=== PATIENT | female | born 1960 | race Two or more races ===

== ENCOUNTER → 2020-08-15 | Outpatient (CLI) | payer SELFPAY | LOC: M LABSMTC 10:33 | PROVIDERS: ATTEND Pediatrics | DX: Z11.52 Encounter for screening for COVID-19 (principal) ==

== ENCOUNTER 2020-08-18 15:44 | Emergency (ER) | payer MEDICARE, SELFPAY ==
[~2020-08-18] VITALS: Ht 167.6 cm; Wt 118.2 kg
[2020-08-18] MEDS ORDERED: CYMB60CA3 PO (16:08)
[2020-08-18] MEDS ORDERED: ISON300T18 PO (16:08)
[2020-08-18] MEDS ORDERED: SYNT125T PO (16:08)
[2020-08-18] MEDS ORDERED: XARE10TA PO (16:08)
[2020-08-18] MEDS ORDERED: ZETI10TA16 PO (16:08)
[2020-08-18] MEDS ORDERED: FOLI1TAB11 PO (16:08)
[2020-08-18] MEDS ORDERED: METH25IN12 SC (16:08)
[2020-08-18] MEDS ORDERED: LYRI150C PO (16:08)
[2020-08-18] MEDS ORDERED: NORV2TAB PO (16:08)
[2020-08-18] MEDS ORDERED: PYRI50TA41 PO (16:08)
[2020-08-18] MEDS ORDERED: TOPR50TA PO (16:08)
[2020-08-18] MEDS ORDERED: NS 1,000 ML IV SCH (17:02)
[2020-08-18] MEDS ORDERED: EPINEPHrine INJ 1 MG/ML 1ML AMP IM PRN (17:05)
[2020-08-18] MEDS ORDERED: methylPREDNISolone 125MG 2ML VIAL IV ONE (17:05)
[2020-08-18] MEDS ORDERED: BAMLANIVIMAB 700 MG, ETESEVIMAB 1,400 MG in NS 250 ML IV ONE (17:05)
[2020-08-18] MEDS ORDERED: ALBUTEROL SULFATE 2.5 MG/0.5 ML INH NEB SOLN INH PRN (17:05)
[2020-08-18] MEDS ORDERED: methylPREDNISolone 125MG 2ML VIAL IV PRN (17:05)
[2020-08-18] MEDS ORDERED: diphenhydrAMINE 50MG/ML VIAL (J1200) IV PRN (17:05)
[2020-08-18] MEDS ORDERED: diphenhydrAMINE 25MG CAP PO ONE (17:05)
[2020-08-18] MEDS ORDERED: ALBUTEROL 90 MCG/ACT 8GM HFA INHALER INH PRN (17:05)
[2020-08-18 18:01] VITALS: BP 137/100
--- NOTE | 2020-08-18 22:14 | IPN ---
PROGRESS NOTE DATE: 08/18/2020 SUBJECTIVE: This is a 59-year-old female with history of rheumatoid arthritis, on chronic Methotrexate, lupus, Sjgren's, antiphospholipid, compliant with her Xarelto, fibromyalgia, latent tuberculosis, hypertension, hypercholesterolemia, hypothyroidism, right carpal tunnel release, elbow surgery, C-1, C-2 decompressive surgery, cholecystectomy, tonsillectomy, decompression of the eighth cranial nerves bilaterally, osteochondroma resection, bilateral knee replacements, right shoulder replacement, total abdominal hysterectomy due to fibroid uterus who presents to the Emergency Room for monoclonal antibodies due to Coronavirus. The patient had been exposed to her , who was in the hospital yesterday receiving monoclonal antibody after testing positive when he was caring for his mother in hospice, along with a caregiver. The patient has experienced headache, diarrhea 2-3 times a day since Friday and with loss of taste, feeling very tired, short of breath after walking 20 feet but without cough or chills. The patient has had no weight loss, no chest pain, pressure or tightness, palpitations or lightheadedness at home. In the E.R. she was afebrile at 97.9, saturating 97% on room air with ambulation and at rest. No tachypnea and no tachycardia. Hospitalist was asked to see the patient for monoclonal antibodies. Risk of the monoclonal antibody includes fever, hypertension, rash, anaphylaxis, angioedema and respiratory distress. The patient was agreeable and signed informed consent. OBJECTIVE: PHYSICAL EXAMINATION: VITAL SIGNS: Temperature 97.9, pulse 86, respiratory rate 19, blood pressure 137/100, oxygen saturation 97% on room air. GENERAL APPEARANCE: The patient is awake, alert, oriented to person, place and time, answering questions appropriately without conversational dyspnea, cyanosis, icterus or jaundice. HEENT: Pupils are equally round and reactive to light and accommodation. The extraocular muscles are intact. Normocephalic and atraumatic. NECK: The patient has no carotid bruits. LUNGS: No stridor or use of respiratory accessory muscles. Lungs have no adventitious breath sounds. Air entry is equal. No kyphoscoliosis, no use rales, rhonchi or wheezes. HEART: S1, S2, sinus rhythm, no murmurs, rubs or gallops. ABDOMEN: Obese, soft, nontender, nondistended. Positive bowel sounds. No hepatosplenomegaly. No abdominal bruit. EXTREMITIES: No clubbing, cyanosis, or any pitting edema. ASSESSMENT: This is a 59-year-old female who tested positive for Coronavirus due to exposure to her , who tested positive after caring for his mother in Hospice. She is here for monoclonal antibodies infusion. IMPRESSION AND PLAN: 1. Coronavirus infection receiving monoclonal antibody per protocol. 2. The patient may resume all other home medications. 3. Follow up with her primary care physician after 5 days from today. DEVIN
== END 2020-08-18 19:47 | disposition home or self-care (01) ==
LOC: M ED 15:44
DX: U07.1 COVID-19 (principal); E78.5 Hyperlipidemia, unspecified; Z22.7 Latent tuberculosis; I10 Essential (primary) hypertension; Z79.01 Long term (current) use of anticoagulants; Z88.1 Allergy status to other antibiotic agents; Z88.2 Allergy status to sulfonamides; Z88.8 Allergy status to other drugs, medicaments and biological substances; Z88.6 Allergy status to analgesic agent

== ENCOUNTER 2020-08-18 19:58 | Outpatient (CLI) | payer MEDICARE ==
[~2020-08-18] VITALS: Ht 167.6 cm; Wt 117.4 kg
--- NOTE | 2020-08-18 18:28 | IPNPDOC ---
Date Seen The patient was seen on 08/18/20. 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 a/p: 59-year-old full code with history of rheumatoid arthritis on chronic methotrexate latent tuberculosis. Receiving treatment, fibromyalgia, antiphosp holipid syndrome compliant with her Zarrella to Sjogren's, hypothyroidism, osteoarthritis, hypertension, hypercholesterolemia, obesity, lupus presents to the emergency room after testing positive on Friday with 2-3 with a three-day complaint since Friday of a headache that is diffuse diarrhea 2-3 times a day loss of taste without weight loss, fever, chills, cough and complaining of shortness of breath after walking about 20 feet. Patient was exposed to her , who is caring for his mother in hospice. He had tested positive for coronary virus and was having fever, cough and chills at home. She decided to be tested and was found to be positive. She is here for monoclonal antibody infusion per protocol. Coronavirus. Positive -Monoclonal antibody infusion per protocol. May discharge home and follow up with her primary care within 5 days of hospital discharge ADRIEN CARMONA MD Aug 18, 2020 18:28
[2020-08-18 19:47] VITALS: BP 155/86
[~2020-08-18 19:58] MED LIST: ACETAMINOPHEN TAB 650MG DOSE (2X325MG) PO ONE; ALBUTEROL 90 MCG/ACT 8GM HFA INHALER INH PRN; ALBUTEROL SULFATE 2.5 MG/0.5 ML INH NEB SOLN INH PRN; BAMLANIVIMAB 700 MG, ETESEVIMAB 1,400 MG in NS 250 ML IV ONE; CYMB60CA3 PO; EPINEPHrine INJ 1 MG/ML 1ML AMP IM PRN; FOLI1TAB11 PO; ISON300T18 PO; LYRI150C PO; METH25IN12 SC; NORV2TAB PO; NS 1,000 ML IV SCH; PYRI50TA41 PO; SYNT125T PO; TOPR50TA PO; XARE10TA PO; ZETI10TA16 PO; diphenhydrAMINE 25MG CAP PO ONE; diphenhydrAMINE 50MG/ML VIAL (J1200) IV PRN; methylPREDNISolone 125MG 2ML VIAL IV ONE; methylPREDNISolone 125MG 2ML VIAL IV PRN
[2020-08-18 20:50] VITALS: BP 126/71
[2020-08-18 21:20] VITALS: BP 157/79
[2020-08-18 22:00] VITALS: BP 116/79
[2020-08-18 22:59] VITALS: BP 154/80
== END 2020-08-18 23:08 | disposition home or self-care (01) ==
LOC: M OPCLI4 19:58
PROVIDERS: ATTEND General Practice
DX: U07.1 COVID-19 (principal); Z88.8 Allergy status to other drugs, medicaments and biological substances
CPT/HCPCS: 96375; J2930; M0239

== ENCOUNTER → 2021-02-07 | Outpatient (REF) | payer MEDICARE ==
[~2021-02-07] MED LIST changes: -ACETAMINOPHEN TAB 650MG DOSE (2X325MG) PO ONE; -ALBUTEROL 90 MCG/ACT 8GM HFA INHALER INH PRN; -ALBUTEROL SULFATE 2.5 MG/0.5 ML INH NEB SOLN INH PRN; -BAMLANIVIMAB 700 MG, ETESEVIMAB 1,400 MG in NS 250 ML IV ONE; -EPINEPHrine INJ 1 MG/ML 1ML AMP IM PRN; -NS 1,000 ML IV SCH; -diphenhydrAMINE 25MG CAP PO ONE; -diphenhydrAMINE 50MG/ML VIAL (J1200) IV PRN; -methylPREDNISolone 125MG 2ML VIAL IV ONE; -methylPREDNISolone 125MG 2ML VIAL IV PRN
== END ==
LOC: M LAB REF 16:17
PROVIDERS: ATTEND Internal Medicine
DX: M32.8 Other forms of systemic lupus erythematosus (principal)

== ENCOUNTER → 2021-02-22 | Outpatient (REF) | payer MEDICARE ==
[2021-02-22 13:57] LABS: IMMUNOGLOBULIN G 746 MG/DL (681-1648); IMMUNOGLOBULIN M 21.9 MG/DL (40-230)
[2021-02-23 18:08] LABS: FREE KAPPA LIGHT CHAINS SERUM 16.2 mg/L (3.3-19.4); FREE LAMBDA LIGHT CHAINS SERUM 11.5 mg/L (5.7-26.3); KAPPA/LAMBDA RATIO SERUM 1.41 (0.26-1.65)
[2021-02-26 15:14] LABS: ALBUMIN 4.39 GM/DL (3.29-5.55); ALBUMIN % 62.7 % (55.8-66.1); ALPHA-1-GLOBULIN % 4.8 % (2.9-4.9); ALPHA-1-GLOBULINS 0.34 GM/DL (0.17-0.41); ALPHA-2-GLOBULINS 0.73 GM/DL (0.42-0.99); ALPHA-2-GLOBULINS % 10.4 % (7.1-11.8); BETA-1-GLOBULINS 0.41 GM/DL (0.28-0.60); BETA-1-GLOBULINS % 5.9 % (4.7-7.2); BETA-2-GLOBULINS 0.38 GM/DL (0.19-0.55); BETA-2-GLOBULINS % 5.4 % (3.2-6.5); GAMMA GLOBULIN % 10.8 % (11.1-18.8); GAMMA GLOBULINS 0.76 GM/DL (0.65-1.58)
== END ==
LOC: M LAB REF 12:23
PROVIDERS: ATTEND Internal Medicine
DX: G62.9 Polyneuropathy, unspecified (principal)

== ENCOUNTER → 2021-03-09 | Outpatient (CLI) | payer MEDICARE ==
[~2021-03-09] MED LIST changes: -CYMB60CA3 PO; +CYMB60CA4 PO
--- NOTE | 2021-03-09 14:47 | REP ---
INDICATION: Assess stenosis TECHNIQUE: Carotid ultrasonography was performed bilaterally FINDINGS: Right: CCA systolic: 136.8 centimeters/second CCA diastolic: 13.0 centimeters/second ICA systolic: 70.7 centimeters/second ICA diastolic: 21.2 centimeters/second ICA CCA ratio: 0.52 Left: CCA systolic: 85.7 centimeters/second CCA diastolic: 18.6 centimeters/second ICA systolic: 54.2 centimeters/second ICA diastolic: 24.0 centimeters/second ICA CCA ratio: 0.63 Vertebral artery: Right: Antegrade flow left: Antegrade flow Patchy and linear echogenic material is seen along the carotid arterial diamond. Some of this casts and acoustic shadow consistent with calcific deposition. IMPRESSION: According to the SRU criteria there is less than 50% stenosis of the internal carotid artery bilaterally. This is secondary to both calcified and noncalcified atheromatous plaque formation. <Electronically signed by Isaac Oswald > 03/09/21 [id number]
== END ==
LOC: M RAD 13:58
PROVIDERS: ATTEND Internal Medicine
DX: I65.29 Occlusion and stenosis of unspecified carotid artery (principal)

== ENCOUNTER → 2021-03-15 | Outpatient (CLI) | payer MEDICARE ==
--- NOTE | 2021-03-15 16:17 | REPVR ---
PROCEDURE INFORMATION: Exam: CT Head Without Contrast Exam date and time: 03/15/2021 3:54 PM Age: 60 years old Clinical indication: Pain; Headache; Migraine; Additional info: Chronic migraine dizziness and giddiness TECHNIQUE: Imaging protocol: Computed tomography of the head without contrast. Radiation optimization: All CT scans at this facility use at least one of these dose optimization techniques: automated exposure control; mA and/or kV adjustment per patient size (includes targeted exams where dose is matched to clinical indication); or iterative reconstruction. COMPARISON: US Duplex,carotid (complete) 03/09/2021 2:13 PM FINDINGS: Brain: There is mild vermian and lateral cerebellar atrophy bilaterally. Depending on available history and prior imaging, MRI may be helpful. Cerebral ventricles: No ventriculomegaly. Paranasal sinuses: Visualized sinuses are unremarkable. No fluid levels. Mastoid air cells: Visualized mastoid air cells are well aerated. Bones/joints: There appear to be bilateral omar holes in the lateral aspects of the posterior fossa on axial image 9. Soft tissues: Unremarkable. Other findings: There is a normal "empty" pituitary sella. IMPRESSION: 1. There appear to be bilateral omar holes in the lateral aspects of the posterior fossa on axial image 9. 2. There is mild vermian and lateral cerebellar atrophy bilaterally. Depending on available history and prior imaging, MRI may be helpful. 3. No acute intracranial process is identified. Electronically signed by: Bon Medellin On 03/15/2021 16:17:17 PM
== END ==
LOC: M RAD 15:28
PROVIDERS: ATTEND Psychiatry & Neurology Neurology
DX: G43.719 Chronic migraine without aura, intractable, without status migrainosus (principal); R42 Dizziness and giddiness; G93.89 Other specified disorders of brain

== ENCOUNTER → 2021-05-14 | Outpatient (CLI) | payer MEDICARE | LOC: M WHC 10:16 | PROVIDERS: ATTEND Internal Medicine | DX: Z12.31 Encounter for screening mammogram for malignant neoplasm of breast (principal) ==

== ENCOUNTER → 2021-07-19 | Outpatient (REF) | payer MEDICARE | LOC: M SFHCRHEU 15:00 | PROVIDERS: ATTEND Internal Medicine | DX: M79.10 Myalgia, unspecified site (principal); M35.00 Sjogren syndrome, unspecified; I82.409 Acute embolism and thrombosis of unspecified deep veins of unspecified lower extremity; Z11.59 Encounter for screening for other viral diseases ==

== ENCOUNTER → 2021-07-25 | Outpatient (CLI) | payer MEDICARE | LOC: M WHC 09:13 | PROVIDERS: ATTEND Nurse Practitioner Adult Health | DX: N83.8 Other noninflammatory disorders of ovary, fallopian tube and broad ligament (principal); R10.31 Right lower quadrant pain; N63.11 Unspecified lump in the right breast, upper outer quadrant; N60.09 Solitary cyst of unspecified breast; Z90.710 Acquired absence of both cervix and uterus ==

== ENCOUNTER → 2021-07-25 | Outpatient (CLI) | payer MEDICARE ==
[2021-07-25 10:58] LABS: BASO # 0.1 10^3/uL (0.0-0.2); EOS # 1.3 10^3/uL (0.0-0.5); HEMATOCRIT 44.1 % (36.0-47.0); HEMOGLOBIN 14.3 g/dl (12.0-15.5); LYMPH # 2.6 10^3/uL (1.5-5.0); LYMPH % 43.4 % (24.0-44.0); MEAN CORPUSCULAR HEMOGLOBIN 29.5 pg (27.0-33.0); MEAN CORPUSCULAR HGB CONC 32.4 g/dl (32.0-36.5); MEAN CORPUSCULAR VOLUME 90.9 fl (80.0-96.0); MONO # 0.4 10^3/uL (0.0-0.8); MONO % 6.5 % (2.0-8.0); NEUTROPHILS # 1.7 10^3/uL (1.5-8.5); PLATELET COUNT, AUTOMATED 215 10^3/uL (150-450); RED BLOOD COUNT 4.85 10^6/uL (4.00-5.40)
[2021-07-25 11:22] LABS: EOS % 21.1 % (0.0-3.0)
[2021-07-25 11:23] LABS: DRVV SCREEN 61.8 SEC; ERYTHROCYTE SEDIMENTATION RATE 6 mm/hr (0-30)
[2021-07-25 12:15] LABS: PTT LUPUS TYPE ANTICOAG SCREEN 1.6 (0-1.2)
[2021-07-25 12:16] LABS: ALT/SGPT 41 U/L (12-78); BILIRUBIN,DIRECT 0.3 MG/DL (0.0-0.2); BILIRUBIN,TOTAL 1.1 MG/DL (0.2-1.0); BLOOD UREA NITROGEN 20 MG/DL (7-18); CARBON DIOXIDE LEVEL 31 MEQ/L (21-32); CHLORIDE LEVEL 106 MEQ/L (98-107); COMPLEMENT C3 146 MG/DL (90-180); COMPLEMENT C4 29 MG/DL (10-40); CREATININE FOR GFR 0.57 MG/DL (0.55-1.30); GLOMERULAR FILTRATION RATE > 60.0 (>51); GLUCOSE, FASTING 106 MG/DL (70-100); HEPATITIS B SURFACE ANTIBODY NEGATIVE (POSITIVE); HEPATITIS B SURFACE ANTIGEN NEGATIVE (NEGATIVE); IMMUNOGLOBULIN G 855 MG/DL (681-1648); IMMUNOGLOBULIN M 21.3 MG/DL (40-230); IRON (FE) 146 UG/DL (50-170); MAGNESIUM LEVEL 2.3 MG/DL (1.8-2.4); PHOSPHORUS LEVEL 4.3 MG/DL (2.5-4.9); POTASSIUM SERUM 4.4 MEQ/L (3.5-5.1); RHEUMATOID FACTOR QUANT 17.6 IU/ML (<15.0); SODIUM LEVEL 139 MEQ/L (136-145); TOTAL 25(OH) VITAMIN D 24.4 NG/ML (30.0-100.0); VITAMIN B12 LEVEL 585 PG/ML (247-911)
[2021-07-25 12:18] LABS: HEPATITIS C VIRUS ABY INDEX 0.2 INDEX (<0.8)
[2021-07-25 12:21] LABS: LUPUS CONFIRM RATIO 1.4
[2021-07-25 12:26] LABS: NORMALIZED RATIO 1.14 (0.00-1.20)
[2021-07-27 03:07] LABS: ANA (HEP2) Negative (.); BETA-2 GLYCOPROTEIN I ABY IGA <9 (0-25); BETA-2 GLYCOPROTEIN I ABY IGG <9 (0-20); BETA-2 GLYCOPROTEIN I ABY IGM <9 (0-32); CARDIOLIPIN IGA ANTIBODY <9 APL U/mL (0-11); CARDIOLIPIN IGG ANTIBODY <9 GPL U/mL (0-14); CARDIOLIPIN IGM ANTIBODY <9 MPL U/mL (0-12); COMPLEMENT TOTAL (CH50) 47 U/mL (>41); HEPATITIS B CORE ANTIBODY IGG Negative (Negative); SSA SJOGRENS A <0.2 AI (0.0-0.9); SSB SJOGRENS B <0.2 AI (0.0-0.9)
[2021-07-27 12:46] LABS: ALBUMIN % 63.1 % (55.8-66.1); ALPHA-1-GLOBULIN % 4.3 % (2.9-4.9); ALPHA-2-GLOBULINS % 9.5 % (7.1-11.8)
[2021-07-27 12:47] LABS: ALBUMIN 4.42 GM/DL (3.29-5.55); ALPHA-2-GLOBULINS 0.67 GM/DL (0.42-0.99); BETA-1-GLOBULINS 0.42 GM/DL (0.28-0.60); BETA-2-GLOBULINS 0.35 GM/DL (0.19-0.55); GAMMA GLOBULIN % 12.1 % (11.1-18.8); GAMMA GLOBULINS 0.85 GM/DL (0.65-1.58)
== END ==
LOC: M RAD 09:18
PROVIDERS: ATTEND Internal Medicine
DX: M79.10 Myalgia, unspecified site (principal); M35.00 Sjogren syndrome, unspecified; Z11.59 Encounter for screening for other viral diseases; I82.409 Acute embolism and thrombosis of unspecified deep veins of unspecified lower extremity; M19.049 Primary osteoarthritis, unspecified hand; Z79.899 Other long term (current) drug therapy

== ENCOUNTER → 2021-08-27 | Outpatient (CLI) | payer MEDICARE ==
[2021-08-27 16:29] LABS: CA 125 6.2 U/ML (<30.2); CA19-9 TUMOR MARKER,CARBOHYDRA 5.9 U/ML (<35.0)
== END ==
LOC: M LAB 15:01
PROVIDERS: ATTEND Obstetrics & Gynecology
DX: D39.12 Neoplasm of uncertain behavior of left ovary (principal); Z79.899 Other long term (current) drug therapy

== ENCOUNTER → 2021-09-13 | Outpatient (CLI) | payer MEDICARE | LOC: M PAIN 13:00 | PROVIDERS: ATTEND Anesthesiology | DX: M54.2 Cervicalgia (principal); G43.909 Migraine, unspecified, not intractable, without status migrainosus; M79.10 Myalgia, unspecified site; M79.18 Myalgia, other site; D68.9 Coagulation defect, unspecified; M79.7 Fibromyalgia; E03.9 Hypothyroidism, unspecified; I34.8 Other nonrheumatic mitral valve disorders; I73.00 Raynaud's syndrome without gangrene; M35.00 Sjogren syndrome, unspecified; E78.5 Hyperlipidemia, unspecified; I10 Essential (primary) hypertension; M32.9 Systemic lupus erythematosus, unspecified; E55.9 Vitamin D deficiency, unspecified; Z88.5 Allergy status to narcotic agent; Z88.8 Allergy status to other drugs, medicaments and biological substances; Z88.2 Allergy status to sulfonamides; Z79.01 Long term (current) use of anticoagulants; Z79.899 Other long term (current) drug therapy ==

== ENCOUNTER → 2021-09-14 | Outpatient (REF) | payer MEDICARE ==
[2021-09-14 16:10] LABS: BASO # 0.1 10^3/uL (0.0-0.2); BASO % 0.9 % (0.0-1.0); EOS # 0.6 10^3/uL (0.0-0.5); EOS % 10.1 % (0.0-3.0); HEMATOCRIT 41.1 % (36.0-47.0); HEMOGLOBIN 13.5 g/dl (12.0-15.5); LYMPH # 2.2 10^3/uL (1.5-5.0); LYMPH % 37.3 % (24.0-44.0); MEAN CORPUSCULAR HEMOGLOBIN 31.1 pg (27.0-33.0); MEAN CORPUSCULAR HGB CONC 32.8 g/dl (32.0-36.5); MEAN CORPUSCULAR VOLUME 94.7 fl (80.0-96.0); MONO # 0.5 10^3/uL (0.0-0.8); MONO % 9.3 % (2.0-8.0); NEUTROPHILS # 2.5 10^3/uL (1.5-8.5); NEUTROPHILS % 42.1 % (36.0-66.0); PLATELET COUNT, AUTOMATED 241 10^3/uL (150-450); RED BLOOD COUNT 4.34 10^6/uL (4.00-5.40); WHITE BLOOD COUNT 5.8 10^3/uL (4.0-10.0)
[2021-09-14 16:36] LABS: ALBUMIN 3.8 GM/DL (3.2-5.2); ALT/SGPT 40 U/L (12-78); BILIRUBIN,DIRECT 0.2 MG/DL (0.0-0.2); BILIRUBIN,TOTAL 0.8 MG/DL (0.2-1.0); BLOOD UREA NITROGEN 17 MG/DL (7-18); CALCIUM LEVEL 8.8 MG/DL (8.5-10.1); CARBON DIOXIDE LEVEL 30 MEQ/L (21-32); CHLORIDE LEVEL 107 MEQ/L (98-107); CREATININE FOR GFR 0.71 MG/DL (0.55-1.30); GLOMERULAR FILTRATION RATE > 60.0 (>51); GLUCOSE, FASTING 118 MG/DL (70-100); POTASSIUM SERUM 4.2 MEQ/L (3.5-5.1); SODIUM LEVEL 141 MEQ/L (136-145); TOTAL PROTEIN 6.2 GM/DL (6.4-8.2)
== END ==
LOC: M SFHCCLAY 10:12
PROVIDERS: ATTEND Internal Medicine
DX: M35.00 Sjogren syndrome, unspecified (principal)

== ENCOUNTER → 2021-09-24 | Outpatient (REF) | payer MEDICARE | LOC: M SFHCCLAY 08:51 | PROVIDERS: ATTEND Internal Medicine | DX: M35.00 Sjogren syndrome, unspecified (principal) ==

== ENCOUNTER → 2021-09-28 | Outpatient (REF) | payer MEDICARE | LOC: M LAB REF 12:04 | PROVIDERS: ATTEND Internal Medicine | DX: Z01.810 Encounter for preprocedural cardiovascular examination (principal); Z11.52 Encounter for screening for COVID-19; D39.12 Neoplasm of uncertain behavior of left ovary ==

== ENCOUNTER → 2021-10-11 | Outpatient (REF) | payer MEDICARE ==
[2021-10-11 16:48] LABS: IMMUNOGLOBULIN A 97.6 MG/DL (70-400); IMMUNOGLOBULIN E 74.5 IU/ML (<100); IMMUNOGLOBULIN M 23.5 MG/DL (40-230)
== END ==
LOC: M LABDRAWC 15:41
PROVIDERS: ATTEND Allergy & Immunology Allergy
DX: D84.9 Immunodeficiency, unspecified (principal)

== ENCOUNTER → 2021-10-11 | Outpatient (REF) | payer MEDICARE ==
[2021-10-11 16:32] LABS: BASO # 0.1 10^3/uL (0.0-0.2); BASO % 1.5 % (0.0-1.0); EOS # 1.2 10^3/uL (0.0-0.5); EOS % 15.8 % (0.0-3.0); HEMATOCRIT 40.9 % (36.0-47.0); LYMPH % 39.6 % (24.0-44.0); MEAN CORPUSCULAR HEMOGLOBIN 31.2 pg (27.0-33.0); MEAN CORPUSCULAR HGB CONC 31.8 g/dl (32.0-36.5); MEAN CORPUSCULAR VOLUME 98.1 fl (80.0-96.0); MONO # 0.5 10^3/uL (0.0-0.8); MONO % 6.1 % (2.0-8.0); NEUTROPHILS # 2.8 10^3/uL (1.5-8.5); NEUTROPHILS % 36.7 % (36.0-66.0); PLATELET COUNT, AUTOMATED 293 10^3/uL (150-450); RED BLOOD COUNT 4.17 10^6/uL (4.00-5.40); WHITE BLOOD COUNT 7.6 10^3/uL (4.0-10.0)
[2021-10-11 16:43] LABS: ALT/SGPT 49 U/L (12-78); BILIRUBIN,DIRECT 0.2 MG/DL (0.0-0.2); BILIRUBIN,TOTAL 0.7 MG/DL (0.2-1.0); BLOOD UREA NITROGEN 7 MG/DL (7-18); CALCIUM LEVEL 8.7 MG/DL (8.8-10.2); CARBON DIOXIDE LEVEL 31 MEQ/L (21-32); CHLORIDE LEVEL 107 MEQ/L (98-107); CREATININE FOR GFR 0.87 MG/DL (0.55-1.30); GLOMERULAR FILTRATION RATE > 60.0 (>45); GLUCOSE, FASTING 113 MG/DL (70-100); POTASSIUM SERUM 4.2 MEQ/L (3.5-5.1); SODIUM LEVEL 140 MEQ/L (136-145); TOTAL PROTEIN 6.3 GM/DL (6.4-8.2)
[2021-10-11 18:11] LABS: ERYTHROCYTE SEDIMENTATION RATE 8 mm/hr (0-30)
== END ==
LOC: M SFHCCLAY 11:12
PROVIDERS: ATTEND Internal Medicine
DX: M35.00 Sjogren syndrome, unspecified (principal)

== ENCOUNTER → 2021-11-08 | Outpatient (REF) | payer MEDICARE ==
[2021-11-08 16:47] LABS: BASO # 0.1 10^3/uL (0.0-0.2); BASO % 1.5 % (0.0-1.0); EOS % 15.8 % (0.0-3.0); HEMOGLOBIN 13.5 g/dl (12.0-15.5); LYMPH # 2.2 10^3/uL (1.5-5.0); LYMPH % 35.5 % (24.0-44.0); MEAN CORPUSCULAR HEMOGLOBIN 31.5 pg (27.0-33.0); MEAN CORPUSCULAR HGB CONC 32.9 g/dl (32.0-36.5); MEAN CORPUSCULAR VOLUME 95.6 fl (80.0-96.0); MONO # 0.5 10^3/uL (0.0-0.8); MONO % 7.7 % (2.0-8.0); NEUTROPHILS # 2.4 10^3/uL (1.5-8.5); NEUTROPHILS % 39.3 % (36.0-66.0); PLATELET COUNT, AUTOMATED 292 10^3/uL (150-450); RED BLOOD COUNT 4.29 10^6/uL (4.00-5.40); WHITE BLOOD COUNT 6.1 10^3/uL (4.0-10.0)
[2021-11-08 16:53] LABS: ALBUMIN 3.8 GM/DL (3.2-5.2); ALT/SGPT 33 U/L (12-78); BILIRUBIN,DIRECT 0.2 MG/DL (0.0-0.2); BILIRUBIN,TOTAL 1.5 MG/DL (0.2-1.0); BLOOD UREA NITROGEN 11 MG/DL (7-18); CALCIUM LEVEL 8.2 MG/DL (8.8-10.2); CARBON DIOXIDE LEVEL 27 MEQ/L (21-32); CHLORIDE LEVEL 108 MEQ/L (98-107); CREATININE FOR GFR 0.68 MG/DL (0.55-1.30); GLOMERULAR FILTRATION RATE > 60.0 (>45); GLUCOSE, FASTING 109 MG/DL (70-100); POTASSIUM SERUM 4.3 MEQ/L (3.5-5.1); SODIUM LEVEL 142 MEQ/L (136-145); TOTAL PROTEIN 6.2 GM/DL (6.4-8.2)
[2021-11-08 17:10] LABS: ERYTHROCYTE SEDIMENTATION RATE 6 mm/hr (0-30)
== END ==
LOC: M SFHCCLAY 09:57
PROVIDERS: ATTEND Internal Medicine
DX: M35.00 Sjogren syndrome, unspecified (principal)

== ENCOUNTER → 2022-01-08 | Outpatient (REF) | payer MEDICARE ==
[2022-01-08 18:04] LABS: FOLLICLE STIMULATING HORMONE 82.8 mIU/mL; LUTEINIZING HORMONE 32.9 mIU/mL
== END ==
LOC: M LAB REF 16:24
PROVIDERS: ATTEND Internal Medicine
DX: N80.9 Endometriosis, unspecified (principal)

== ENCOUNTER → 2022-01-09 | Outpatient (REF) | payer MEDICARE ==
[2022-01-09 11:48] LABS: BASO # 0.1 10^3/uL (0.0-0.2); BASO % 1.6 % (0.0-1.0); EOS # 0.8 10^3/uL (0.0-0.5); EOS % 14.4 % (0.0-3.0); HEMATOCRIT 43.6 % (36.0-47.0); HEMOGLOBIN 15.1 g/dl (12.0-15.5); LYMPH # 2.4 10^3/uL (1.5-5.0); LYMPH % 41.2 % (24.0-44.0); MEAN CORPUSCULAR HEMOGLOBIN 33.3 pg (27.0-33.0); MEAN CORPUSCULAR HGB CONC 34.6 g/dl (32.0-36.5); MONO # 0.5 10^3/uL (0.0-0.8); NEUTROPHILS # 1.9 10^3/uL (1.5-8.5); NEUTROPHILS % 33.6 % (36.0-66.0); PLATELET COUNT, AUTOMATED 269 10^3/uL (150-450); RED BLOOD COUNT 4.54 10^6/uL (4.00-5.40); WHITE BLOOD COUNT 5.8 10^3/uL (4.0-10.0)
[2022-01-09 12:45] LABS: ERYTHROCYTE SEDIMENTATION RATE 6 mm/hr (0-30)
[2022-01-09 12:58] LABS: ALBUMIN 4.1 GM/DL (3.2-5.2); ALT/SGPT 36 U/L (12-78); BILIRUBIN,DIRECT 0.2 MG/DL (0.0-0.2); BILIRUBIN,TOTAL 0.6 MG/DL (0.2-1.0); BLOOD UREA NITROGEN 17 MG/DL (7-18); CALCIUM LEVEL 9.2 MG/DL (8.8-10.2); CARBON DIOXIDE LEVEL 28 MEQ/L (21-32); CHLORIDE LEVEL 106 MEQ/L (98-107); CREATININE FOR GFR 0.62 MG/DL (0.55-1.30); GLOMERULAR FILTRATION RATE > 60.0 (>45); GLUCOSE, FASTING 100 MG/DL (70-100); POTASSIUM SERUM 4.3 MEQ/L (3.5-5.1); SODIUM LEVEL 139 MEQ/L (136-145)
== END ==
LOC: M SFHCCLAY 09:21
PROVIDERS: ATTEND Internal Medicine
DX: M35.00 Sjogren syndrome, unspecified (principal)

== ENCOUNTER → 2022-01-13 | Outpatient (CLI) | payer MEDICARE | LOC: M LABSMTC 10:08 | PROVIDERS: ATTEND Anesthesiology | DX: Z01.812 Encounter for preprocedural laboratory examination (principal); Z20.822 Contact with and (suspected) exposure to COVID-19 ==

== ENCOUNTER → 2022-01-15 | Outpatient (CLI) | payer MEDICARE ==
[2022-01-15 08:55] VITALS: BP 123/73
== END ==
LOC: M SDC 07:02
PROVIDERS: ATTEND Anesthesiology
DX: M25.78 Osteophyte, vertebrae (principal); M54.2 Cervicalgia

== ENCOUNTER → 2022-02-20 | Outpatient (REF) | payer MEDICARE ==
[2022-02-20 18:34] LABS: BASO % 0.7 % (0.0-1.0); EOS # 0.4 10^3/uL (0.0-0.5); EOS % 6.7 % (0.0-3.0); HEMATOCRIT 41.1 % (36.0-47.0); HEMOGLOBIN 12.9 g/dl (12.0-15.5); LYMPH % 36.3 % (24.0-44.0); MEAN CORPUSCULAR HEMOGLOBIN 30.4 pg (27.0-33.0); MEAN CORPUSCULAR HGB CONC 31.4 g/dl (32.0-36.5); MEAN CORPUSCULAR VOLUME 96.9 fl (80.0-96.0); MONO # 0.4 10^3/uL (0.0-0.8); NEUTROPHILS # 2.7 10^3/uL (1.5-8.5); NEUTROPHILS % 47.9 % (36.0-66.0); PLATELET COUNT, AUTOMATED 229 10^3/uL (150-450); RED BLOOD COUNT 4.24 10^6/uL (4.00-5.40); WHITE BLOOD COUNT 5.5 10^3/uL (4.0-10.0)
[2022-02-20 19:10] LABS: ALBUMIN 3.9 GM/DL (3.2-5.2); ALT/SGPT 33 U/L (12-78); BILIRUBIN,DIRECT 0.2 MG/DL (0.0-0.2); BILIRUBIN,TOTAL 0.6 MG/DL (0.2-1.0); BLOOD UREA NITROGEN 11 MG/DL (7-18); CARBON DIOXIDE LEVEL 31 MEQ/L (21-32); CHLORIDE LEVEL 105 MEQ/L (98-107); CREATININE FOR GFR 0.67 MG/DL (0.55-1.30); GLOMERULAR FILTRATION RATE > 60.0 (>45); GLUCOSE, FASTING 80 MG/DL (70-100); POTASSIUM SERUM 4.2 MEQ/L (3.5-5.1); SODIUM LEVEL 140 MEQ/L (136-145); TOTAL PROTEIN 6.7 GM/DL (6.4-8.2)
[2022-02-20 19:49] LABS: TOTAL 25(OH) VITAMIN D 37.7 NG/ML (30.0-100.0)
[2022-02-20 20:20] LABS: ERYTHROCYTE SEDIMENTATION RATE 8 mm/hr (0-30)
== END ==
LOC: M SFHCCLAY 11:11
PROVIDERS: ATTEND Internal Medicine
DX: M35.00 Sjogren syndrome, unspecified (principal); E55.9 Vitamin D deficiency, unspecified; Z79.899 Other long term (current) drug therapy

== ENCOUNTER → 2022-03-08 | Outpatient (CLI) | payer MEDICARE | LOC: M PAIN 11:00 | PROVIDERS: ATTEND Anesthesiology | DX: M54.2 Cervicalgia (principal); M79.10 Myalgia, unspecified site; M79.18 Myalgia, other site; M79.7 Fibromyalgia; H91.90 Unspecified hearing loss, unspecified ear; E03.9 Hypothyroidism, unspecified; I08.0 Rheumatic disorders of both mitral and aortic valves; I73.00 Raynaud's syndrome without gangrene; G43.909 Migraine, unspecified, not intractable, without status migrainosus; M35.00 Sjogren syndrome, unspecified; E78.5 Hyperlipidemia, unspecified; I10 Essential (primary) hypertension; M32.9 Systemic lupus erythematosus, unspecified; M19.90 Unspecified osteoarthritis, unspecified site; E55.9 Vitamin D deficiency, unspecified; R73.03 Prediabetes; Z79.01 Long term (current) use of anticoagulants; Z79.899 Other long term (current) drug therapy; Z79.890 Hormone replacement therapy; Z88.2 Allergy status to sulfonamides; Z88.8 Allergy status to other drugs, medicaments and biological substances; Z88.5 Allergy status to narcotic agent; J30.89 Other allergic rhinitis; Z91.038 Other insect allergy status ==

== ENCOUNTER → 2022-03-13 | Outpatient (CLI) | payer MEDICARE | LOC: M WHC 09:19 | PROVIDERS: ATTEND Internal Medicine | DX: N63.11 Unspecified lump in the right breast, upper outer quadrant (principal) | CPT/HCPCS: 77066; G0279 ==

== ENCOUNTER → 2022-03-26 | Outpatient (CLI) | payer MEDICARE | LOC: M PAIN 15:45 → M TMPAIN 15:45 | PROVIDERS: ATTEND Anesthesiology | DX: M79.10 Myalgia, unspecified site (principal); M54.2 Cervicalgia; M47.812 Spondylosis without myelopathy or radiculopathy, cervical region; M79.7 Fibromyalgia; H91.90 Unspecified hearing loss, unspecified ear; E03.9 Hypothyroidism, unspecified; I08.0 Rheumatic disorders of both mitral and aortic valves; I73.00 Raynaud's syndrome without gangrene; G43.909 Migraine, unspecified, not intractable, without status migrainosus; M35.00 Sjogren syndrome, unspecified; D68.59 Other primary thrombophilia; E78.5 Hyperlipidemia, unspecified; I10 Essential (primary) hypertension; M32.9 Systemic lupus erythematosus, unspecified; D84.821 Immunodeficiency due to drugs; M19.90 Unspecified osteoarthritis, unspecified site; E55.9 Vitamin D deficiency, unspecified; R73.03 Prediabetes; Z96.611 Presence of right artificial shoulder joint; Z96.653 Presence of artificial knee joint, bilateral; Z79.01 Long term (current) use of anticoagulants; Z79.899 Other long term (current) drug therapy; Z79.890 Hormone replacement therapy; Z88.2 Allergy status to sulfonamides; Z88.5 Allergy status to narcotic agent; Z88.8 Allergy status to other drugs, medicaments and biological substances; J30.89 Other allergic rhinitis ==

== ENCOUNTER → 2022-03-28 | Outpatient (CLI) | payer MEDICARE | LOC: M LABSMTC 11:12 | PROVIDERS: ATTEND Anesthesiology | DX: Z01.812 Encounter for preprocedural laboratory examination (principal); Z11.52 Encounter for screening for COVID-19 ==

== ENCOUNTER → 2022-04-01 | Outpatient (CLI) | payer MEDICARE ==
[~2022-04-01] MED LIST changes: +BUPIVACAINE HCL 0.25% 10ML VIAL As Ordered ONE; +BUPIVACAINE HCL 0.25% 30ML VIAL As Ordered ONE; +NORCO, ANEXSIA 5/325MG TABLET (HYDROcodone/ACETAMINOPHEN) As Ordered ONE; +TRIAMCINOLONE ACETONIDE SUSP 40 MG/ML VIAL (J3301) As Ordered ONE; +diazePAM 5MG TABLET As Ordered ONE
== END ==
LOC: M PAIN 13:45
PROVIDERS: ATTEND Anesthesiology
DX: M79.12 Myalgia of auxiliary muscles, head and neck (principal); M79.7 Fibromyalgia; H91.90 Unspecified hearing loss, unspecified ear; E03.9 Hypothyroidism, unspecified; I34.0 Nonrheumatic mitral (valve) insufficiency; I73.00 Raynaud's syndrome without gangrene; G43.909 Migraine, unspecified, not intractable, without status migrainosus; M35.00 Sjogren syndrome, unspecified; E78.5 Hyperlipidemia, unspecified; I10 Essential (primary) hypertension; M32.9 Systemic lupus erythematosus, unspecified; M19.90 Unspecified osteoarthritis, unspecified site; E55.9 Vitamin D deficiency, unspecified; R73.03 Prediabetes; Z88.2 Allergy status to sulfonamides; Z88.5 Allergy status to narcotic agent; Z88.8 Allergy status to other drugs, medicaments and biological substances; J30.89 Other allergic rhinitis; Z79.01 Long term (current) use of anticoagulants; Z79.890 Hormone replacement therapy; Z79.899 Other long term (current) drug therapy
CPT/HCPCS: 20553; J3301

== ENCOUNTER → 2022-04-24 | Outpatient (CLI) | payer MEDICARE ==
[~2022-04-24] MED LIST changes: -BUPIVACAINE HCL 0.25% 10ML VIAL As Ordered ONE; -BUPIVACAINE HCL 0.25% 30ML VIAL As Ordered ONE; -NORCO, ANEXSIA 5/325MG TABLET (HYDROcodone/ACETAMINOPHEN) As Ordered ONE; -TRIAMCINOLONE ACETONIDE SUSP 40 MG/ML VIAL (J3301) As Ordered ONE; -diazePAM 5MG TABLET As Ordered ONE
== END ==
LOC: M PAIN 10:30
PROVIDERS: ATTEND Anesthesiology
DX: G89.29 Other chronic pain (principal); M54.2 Cervicalgia; M79.10 Myalgia, unspecified site; M79.18 Myalgia, other site; M79.7 Fibromyalgia; E03.9 Hypothyroidism, unspecified; I73.00 Raynaud's syndrome without gangrene; G43.909 Migraine, unspecified, not intractable, without status migrainosus; E78.5 Hyperlipidemia, unspecified; M35.00 Sjogren syndrome, unspecified; I10 Essential (primary) hypertension; M32.9 Systemic lupus erythematosus, unspecified; D68.59 Other primary thrombophilia; M19.90 Unspecified osteoarthritis, unspecified site; E55.9 Vitamin D deficiency, unspecified; Z79.01 Long term (current) use of anticoagulants; Z79.890 Hormone replacement therapy; Z79.899 Other long term (current) drug therapy; Z88.2 Allergy status to sulfonamides; Z88.5 Allergy status to narcotic agent; Z88.8 Allergy status to other drugs, medicaments and biological substances; J30.89 Other allergic rhinitis

== ENCOUNTER → 2022-04-30 | Outpatient (REF) | payer MEDICARE ==
[2022-04-30 17:18] LABS: BASO % 0.7 % (0.0-1.0); EOS # 0.5 10^3/uL (0.0-0.5); EOS % 8.1 % (0.0-3.0); HEMATOCRIT 40.7 % (36.0-47.0); HEMOGLOBIN 12.8 g/dl (12.0-15.5); LYMPH # 2.2 10^3/uL (1.5-5.0); MEAN CORPUSCULAR HEMOGLOBIN 30.7 pg (27.0-33.0); MEAN CORPUSCULAR HGB CONC 31.4 g/dl (32.0-36.5); MEAN CORPUSCULAR VOLUME 97.6 fl (80.0-96.0); MONO # 0.5 10^3/uL (0.0-0.8); MONO % 8.1 % (2.0-8.0); NEUTROPHILS # 2.6 10^3/uL (1.5-8.5); NEUTROPHILS % 44.9 % (36.0-66.0); PLATELET COUNT, AUTOMATED 221 10^3/uL (150-450); RED BLOOD COUNT 4.17 10^6/uL (4.00-5.40); WHITE BLOOD COUNT 5.8 10^3/uL (4.0-10.0)
[2022-04-30 17:44] LABS: ALBUMIN 3.7 G/DL (3.2-5.2); ALKALINE PHOSPHATASE 53 U/L (46-116); ALT/SGPT 35 U/L (7.0-40); AST/SGOT 24 U/L (<34); BILIRUBIN,DIRECT 0.2 MG/DL (<0.4); BILIRUBIN,TOTAL 0.7 MG/DL (0.3-1.2); BLOOD UREA NITROGEN 20 MG/DL (9-23); C REACTIVE PROTEIN QUANTITATIV < 0.40 MG/DL (<1.0); CALCIUM LEVEL 8.8 MG/DL (8.3-10.6); CARBON DIOXIDE LEVEL 32 MMOL/L (20-31); CHLORIDE LEVEL 102 MMOL/L (98-107); CREATININE FOR GFR 0.82 MG/DL (0.55-1.30); GLOMERULAR FILTRATION RATE > 60.0 (>45); GLUCOSE, FASTING 93 MG/DL (74-106); SODIUM LEVEL 140 MMOL/L (136-145); TOTAL PROTEIN 6.2 G/DL (5.7-8.2)
[2022-04-30 18:30] LABS: ERYTHROCYTE SEDIMENTATION RATE 6 mm/hr (0-30)
== END ==
LOC: M SFHCCLAY 14:58
PROVIDERS: ATTEND Internal Medicine
DX: M35.00 Sjogren syndrome, unspecified (principal)

== ENCOUNTER → 2022-07-01 | Outpatient (REF) | payer MEDICARE ==
[2022-07-01 17:43] LABS: C REACTIVE PROTEIN QUANTITATIV < 0.40 MG/DL (<1.0)
[2022-07-01 17:48] LABS: ALBUMIN 3.8 G/DL (3.2-5.2); ALKALINE PHOSPHATASE 69 U/L (46-116); ALT/SGPT 35 U/L (7.0-40); AST/SGOT 25 U/L (<34); BILIRUBIN,DIRECT 0.2 MG/DL (<0.4); BILIRUBIN,TOTAL 0.8 MG/DL (0.3-1.2); BLOOD UREA NITROGEN 16 MG/DL (9-23); CALCIUM LEVEL 8.6 MG/DL (8.3-10.6); CARBON DIOXIDE LEVEL 28 MMOL/L (20-31); CHLORIDE LEVEL 104 MMOL/L (98-107); CREATININE FOR GFR 0.61 MG/DL (0.55-1.30); GLOMERULAR FILTRATION RATE > 60.0 (>45); GLUCOSE, FASTING 87 MG/DL (74-106); POTASSIUM SERUM 3.9 MMOL/L (3.5-5.1); SODIUM LEVEL 140 MMOL/L (136-145); TOTAL PROTEIN 6.5 G/DL (5.7-8.2)
[2022-07-01 18:04] LABS: ERYTHROCYTE SEDIMENTATION RATE 17 mm/hr (0-30)
[2022-07-01 18:12] LABS: BASO # 0.1 10^3/uL (0.0-0.2); BASO % 1.2 % (0.0-1.0); EOS # 0.6 10^3/uL (0.0-0.5); EOS % 10.2 % (0.0-3.0); HEMOGLOBIN 13.3 g/dl (12.0-15.5); LYMPH # 1.8 10^3/uL (1.5-5.0); LYMPH % 31.3 % (24.0-44.0); MEAN CORPUSCULAR HEMOGLOBIN 31.3 pg (27.0-33.0); MEAN CORPUSCULAR HGB CONC 32.4 g/dl (32.0-36.5); MEAN CORPUSCULAR VOLUME 96.5 fl (80.0-96.0); MONO # 0.4 10^3/uL (0.0-0.8); NEUTROPHILS % 51.1 % (36.0-66.0); PLATELET COUNT, AUTOMATED 246 10^3/uL (150-450); RED BLOOD COUNT 4.25 10^6/uL (4.00-5.40); WHITE BLOOD COUNT 5.9 10^3/uL (4.0-10.0)
== END ==
LOC: M SFHCCLAY 14:05
PROVIDERS: ATTEND Internal Medicine
DX: M35.00 Sjogren syndrome, unspecified (principal)

== ENCOUNTER → 2022-07-04 | Outpatient (CLI) | payer MEDICARE | LOC: M PAIN 13:00 | PROVIDERS: ATTEND Anesthesiology | DX: M79.12 Myalgia of auxiliary muscles, head and neck (principal); M79.18 Myalgia, other site; M25.511 Pain in right shoulder; M79.7 Fibromyalgia; H91.90 Unspecified hearing loss, unspecified ear; E03.9 Hypothyroidism, unspecified; I73.00 Raynaud's syndrome without gangrene; G43.909 Migraine, unspecified, not intractable, without status migrainosus; M35.00 Sjogren syndrome, unspecified; E78.5 Hyperlipidemia, unspecified; I10 Essential (primary) hypertension; J30.81 Allergic rhinitis due to animal (cat) (dog) hair and dander; M32.9 Systemic lupus erythematosus, unspecified; E55.9 Vitamin D deficiency, unspecified; Z79.890 Hormone replacement therapy; Z79.01 Long term (current) use of anticoagulants; Z79.899 Other long term (current) drug therapy; Z88.2 Allergy status to sulfonamides; Z88.5 Allergy status to narcotic agent; Z88.8 Allergy status to other drugs, medicaments and biological substances; Z91.038 Other insect allergy status ==

== ENCOUNTER → 2022-08-12 | Outpatient (REF) | payer MEDICARE ==
[2022-08-12 17:42] LABS: C REACTIVE PROTEIN QUANTITATIV < 0.40 MG/DL (<1.0)
[2022-08-12 17:49] LABS: ALBUMIN 3.7 G/DL (3.2-5.2); ALKALINE PHOSPHATASE 60 U/L (46-116); ALT/SGPT 25 U/L (7.0-40); AST/SGOT 16 U/L (<34); BASO # 0.1 10^3/uL (0.0-0.2); BILIRUBIN,DIRECT 0.2 MG/DL (<0.4); BILIRUBIN,TOTAL 0.6 MG/DL (0.3-1.2); BLOOD UREA NITROGEN 19 MG/DL (9-23); CALCIUM LEVEL 8.6 MG/DL (8.3-10.6); CARBON DIOXIDE LEVEL 30 MMOL/L (20-31); CHLORIDE LEVEL 103 MMOL/L (98-107); CREATININE FOR GFR 0.67 MG/DL (0.55-1.30); EOS # 0.6 10^3/uL (0.0-0.5); EOS % 9.7 % (0.0-3.0); GLOMERULAR FILTRATION RATE > 60.0 (>45); GLUCOSE, FASTING 79 MG/DL (74-106); HEMATOCRIT 40.7 % (36.0-47.0); HEMOGLOBIN 13.2 g/dl (12.0-15.5); LYMPH # 2.3 10^3/uL (1.5-5.0); LYMPH % 36.5 % (24.0-44.0); MEAN CORPUSCULAR HEMOGLOBIN 31.1 pg (27.0-33.0); MEAN CORPUSCULAR HGB CONC 32.4 g/dl (32.0-36.5); MEAN CORPUSCULAR VOLUME 95.8 fl (80.0-96.0); MONO # 0.4 10^3/uL (0.0-0.8); NEUTROPHILS # 2.9 10^3/uL (1.5-8.5); NEUTROPHILS % 46.8 % (36.0-66.0); PLATELET COUNT, AUTOMATED 261 10^3/uL (150-450); RED BLOOD COUNT 4.25 10^6/uL (4.00-5.40); SODIUM LEVEL 140 MMOL/L (136-145); WHITE BLOOD COUNT 6.2 10^3/uL (4.0-10.0)
[2022-08-12 18:32] LABS: ERYTHROCYTE SEDIMENTATION RATE 6 mm/hr (0-30)
== END ==
LOC: M SFHCCLAY 14:08
PROVIDERS: ATTEND Internal Medicine
DX: M35.00 Sjogren syndrome, unspecified (principal)

== ENCOUNTER → 2022-08-16 | Outpatient (CLI) | payer MEDICARE | LOC: M PAIN 16:00 | PROVIDERS: ATTEND Anesthesiology | DX: M79.10 Myalgia, unspecified site (principal); M79.18 Myalgia, other site; M79.7 Fibromyalgia; E03.9 Hypothyroidism, unspecified; I73.00 Raynaud's syndrome without gangrene; G43.909 Migraine, unspecified, not intractable, without status migrainosus; M35.00 Sjogren syndrome, unspecified; E78.5 Hyperlipidemia, unspecified; I10 Essential (primary) hypertension; M32.9 Systemic lupus erythematosus, unspecified; E55.9 Vitamin D deficiency, unspecified; M19.90 Unspecified osteoarthritis, unspecified site; Z79.01 Long term (current) use of anticoagulants; Z79.890 Hormone replacement therapy; Z79.899 Other long term (current) drug therapy; Z88.2 Allergy status to sulfonamides; Z88.5 Allergy status to narcotic agent; Z88.8 Allergy status to other drugs, medicaments and biological substances; Z91.038 Other insect allergy status ==

== ENCOUNTER → 2022-08-28 | Outpatient (CLI) | payer MEDICARE | LOC: M PAIN 10:30 | PROVIDERS: ATTEND Anesthesiology | DX: M25.511 Pain in right shoulder (principal); M79.2 Neuralgia and neuritis, unspecified; M79.7 Fibromyalgia; E03.9 Hypothyroidism, unspecified; G43.909 Migraine, unspecified, not intractable, without status migrainosus; I10 Essential (primary) hypertension; Z96.653 Presence of artificial knee joint, bilateral; Z96.611 Presence of right artificial shoulder joint; Z88.1 Allergy status to other antibiotic agents; Z88.5 Allergy status to narcotic agent; Z88.8 Allergy status to other drugs, medicaments and biological substances; Z91.038 Other insect allergy status; Z79.01 Long term (current) use of anticoagulants; Z79.890 Hormone replacement therapy; Z79.899 Other long term (current) drug therapy ==

== ENCOUNTER → 2022-10-31 | Outpatient (REF) | payer MEDICARE ==
[2022-10-31 17:36] LABS: BASO # 0.1 10^3/uL (0.0-0.2); BASO % 0.8 % (0.0-1.0); EOS % 13.7 % (0.0-3.0); HEMATOCRIT 40.7 % (36.0-47.0); HEMOGLOBIN 13.4 g/dl (12.0-15.5); LYMPH % 42.9 % (24.0-44.0); MEAN CORPUSCULAR HEMOGLOBIN 29.7 pg (27.0-33.0); MEAN CORPUSCULAR HGB CONC 32.9 g/dl (32.0-36.5); MEAN CORPUSCULAR VOLUME 90.2 fl (80.0-96.0); MONO # 0.4 10^3/uL (0.0-0.8); MONO % 5.7 % (2.0-8.0); NEUTROPHILS # 2.6 10^3/uL (1.5-8.5); NEUTROPHILS % 36.6 % (36.0-66.0); PLATELET COUNT, AUTOMATED 258 10^3/uL (150-450); RED BLOOD COUNT 4.51 10^6/uL (4.00-5.40); WHITE BLOOD COUNT 7.1 10^3/uL (4.0-10.0)
[2022-10-31 17:37] LABS: C REACTIVE PROTEIN QUANTITATIV < 0.40 MG/DL (<1.0)
[2022-10-31 17:38] LABS: ALBUMIN 3.8 G/DL (3.2-5.2); ALKALINE PHOSPHATASE 63 U/L (46-116); ALT/SGPT 31 U/L (7.0-40); AST/SGOT 24 U/L (<34); BILIRUBIN,DIRECT 0.2 MG/DL (<0.4); BILIRUBIN,TOTAL 0.5 MG/DL (0.3-1.2); BLOOD UREA NITROGEN 12 MG/DL (9-23); CALCIUM LEVEL 8.4 MG/DL (8.3-10.6); CARBON DIOXIDE LEVEL 28 MMOL/L (20-31); CHLORIDE LEVEL 105 MMOL/L (98-107); CREATININE FOR GFR 0.69 MG/DL (0.55-1.30); GLOMERULAR FILTRATION RATE > 60.0 (>45); GLUCOSE, FASTING 89 MG/DL (74-106); POTASSIUM SERUM 4.3 MMOL/L (3.5-5.1); SODIUM LEVEL 140 MMOL/L (136-145); TOTAL PROTEIN 6.1 G/DL (5.7-8.2)
[2022-10-31 17:56] LABS: ERYTHROCYTE SEDIMENTATION RATE 7 mm/hr (0-30)
== END ==
LOC: M SFHCCLAY 13:13
PROVIDERS: ATTEND Internal Medicine
DX: M35.00 Sjogren syndrome, unspecified (principal)

== ENCOUNTER → 2022-11-11 | Outpatient (CLI) | payer OTHER, MEDICARE | LOC: M PAIN 10:45 | PROVIDERS: ATTEND Nurse Practitioner Family | DX: M79.18 Myalgia, other site (principal); M79.7 Fibromyalgia; E03.9 Hypothyroidism, unspecified; I73.00 Raynaud's syndrome without gangrene; G43.909 Migraine, unspecified, not intractable, without status migrainosus; M35.00 Sjogren syndrome, unspecified; E78.5 Hyperlipidemia, unspecified; I10 Essential (primary) hypertension; M32.9 Systemic lupus erythematosus, unspecified; E55.9 Vitamin D deficiency, unspecified; M19.90 Unspecified osteoarthritis, unspecified site; I34.0 Nonrheumatic mitral (valve) insufficiency; Z79.01 Long term (current) use of anticoagulants; Z79.890 Hormone replacement therapy; Z79.899 Other long term (current) drug therapy; Z88.2 Allergy status to sulfonamides; Z88.8 Allergy status to other drugs, medicaments and biological substances; J30.81 Allergic rhinitis due to animal (cat) (dog) hair and dander; Z91.038 Other insect allergy status ==

== ENCOUNTER → 2022-12-18 | Outpatient (REF) | payer MEDICARE, OTHER ==
[2022-12-18 11:40] LABS: HEMATOCRIT 43.2 % (36.0-47.0); HEMOGLOBIN 14.1 g/dl (12.0-15.5); MEAN CORPUSCULAR HEMOGLOBIN 30.5 pg (27.0-33.0); MEAN CORPUSCULAR HGB CONC 32.6 g/dl (32.0-36.5); MEAN CORPUSCULAR VOLUME 93.3 fl (80.0-96.0); PLATELET COUNT, AUTOMATED 225 10^3/uL (150-450); RED BLOOD COUNT 4.63 10^6/uL (4.00-5.40); WHITE BLOOD COUNT 5.4 10^3/uL (4.0-10.0)
[2022-12-18 11:57] LABS: ERYTHROCYTE SEDIMENTATION RATE 18 mm/hr (0-30)
[2022-12-18 12:10] LABS: C REACTIVE PROTEIN QUANTITATIV < 0.40 MG/DL (<1.0)
[2022-12-18 12:12] LABS: ALBUMIN 3.9 G/DL (3.2-5.2); ALKALINE PHOSPHATASE 74 U/L (46-116); ALT/SGPT 24 U/L (7.0-40); AST/SGOT 17 U/L (<34); BILIRUBIN,DIRECT 0.2 MG/DL (<0.4); BILIRUBIN,TOTAL 0.7 MG/DL (0.3-1.2); BLOOD UREA NITROGEN 9 MG/DL (9-23); CALCIUM LEVEL 8.9 MG/DL (8.3-10.6); CARBON DIOXIDE LEVEL 29 MMOL/L (20-31); CHLORIDE LEVEL 103 MMOL/L (98-107); CREATININE FOR GFR 0.59 MG/DL (0.55-1.30); GLOMERULAR FILTRATION RATE > 60.0 (>45); GLUCOSE, FASTING 88 MG/DL (74-106); POTASSIUM SERUM 4.1 MMOL/L (3.5-5.1); SODIUM LEVEL 140 MMOL/L (136-145); TOTAL PROTEIN 6.3 G/DL (5.7-8.2)
[2022-12-18 12:22] LABS: ATYPICAL LYMPH 14 % (0-5); EOSINOPHILS 8 % (0-3); LYMPHOCYTES 29 % (16-44); MONOCYTES 7 % (0-5); NEUTROPHILS 42 % (28-66); PLATELET ESTIMATE NORMAL (NORMAL)
== END ==
LOC: M SFHCCLAY 07:57
PROVIDERS: ATTEND Internal Medicine
DX: M35.00 Sjogren syndrome, unspecified (principal)

== ENCOUNTER → 2023-02-05 | Outpatient (CLI) | payer MEDICARE ==
[~2023-02-05] MED LIST changes: +EZET10TA58 PO; -ZETI10TA16 PO
== END ==
LOC: M INFU 09:33
PROVIDERS: ATTEND Internal Medicine
DX: M35.00 Sjogren syndrome, unspecified (principal); Z88.8 Allergy status to other drugs, medicaments and biological substances; Z88.5 Allergy status to narcotic agent; Z88.2 Allergy status to sulfonamides

== ENCOUNTER 2023-02-19 08:00 | Outpatient (CLI) | payer MEDICARE ==
[~2023-02-19] VITALS: Ht 167.6 cm; Wt 113.2 kg
[2023-02-19] VITALS (8 sets, daily range): BP systolic 111–172; BP diastolic 65–84; O2SAT 70–99
[~2023-02-19 08:00] MED LIST changes: +ALBUTEROL SULFATE 2.5MG/0.5ML INH NEB SOLN INH PRN; +EPINEPHrine INJ 1 MG/ML 1ML AMP IM PRN; +diphenhydrAMINE 50MG/ML VIAL IV PRN; +methylPREDNISolone 125MG 2ML VIAL IV PRN
[2023-02-19] MEDS ORDERED: diphenhydrAMINE 50MG PO PRIOR TO INFUSION PO ONE (08:35)
[2023-02-19] MEDS ORDERED: ACETAMINOPHEN 650MG PO PRIOR TO INFUSION PO ONE (08:35)
[2023-02-19] MEDS ORDERED: riTUXimab 1,000 MG in NS 900 ML IV ONE (08:45)
== END 2023-02-19 14:45 ==
LOC: M INFU 08:00
PROVIDERS: ATTEND Internal Medicine
DX: M35.00 Sjogren syndrome, unspecified (principal); Z88.1 Allergy status to other antibiotic agents; Z88.5 Allergy status to narcotic agent; Z88.2 Allergy status to sulfonamides
CPT/HCPCS: 96413; 96415; J9312

== ENCOUNTER → 2023-02-28 | Outpatient (CLI) | payer MEDICARE ==
[~2023-02-28] MED LIST changes: -ALBUTEROL SULFATE 2.5MG/0.5ML INH NEB SOLN INH PRN; -EPINEPHrine INJ 1 MG/ML 1ML AMP IM PRN; -diphenhydrAMINE 50MG/ML VIAL IV PRN; -methylPREDNISolone 125MG 2ML VIAL IV PRN
== END ==
LOC: M PLAIMG 11:04
PROVIDERS: ATTEND Psychiatry & Neurology Neurology
DX: G43.719 Chronic migraine without aura, intractable, without status migrainosus (principal); H81.4 Vertigo of central origin

== ENCOUNTER 2023-03-05 10:05 | Outpatient (CLI) | payer MEDICARE ==
[~2023-03-05] VITALS: Ht 167.6 cm; Wt 111.7 kg
[2023-03-05 10:00] VITALS: BP 149/69; TEMP 97.6; O2SAT 100
[~2023-03-05 10:05] MED LIST changes: +ALBUTEROL SULFATE 2.5MG/0.5ML INH NEB SOLN INH PRN; +EPINEPHrine INJ 1 MG/ML 1ML AMP IM PRN; +diphenhydrAMINE 50MG/ML VIAL IV PRN; +methylPREDNISolone 125MG 2ML VIAL IV PRN
[2023-03-05] MEDS ORDERED: diphenhydrAMINE 50MG PO PRIOR TO INFUSION PO ONE (10:20)
[2023-03-05] MEDS ORDERED: ACETAMINOPHEN 650MG ER TAB (TYLENOL ARTHRITIS) PO ONE (10:20)
[2023-03-05] MEDS ORDERED: riTUXimab 1,000 MG in NS 900 ML IV ONE (10:30)
[2023-03-05 12:15] VITALS: BP 160/79; O2SAT 100
[2023-03-05 12:45] VITALS: BP 137/72; TEMP 97.3; O2SAT 98
[2023-03-05 13:15] VITALS: BP 135/74; TEMP 97.6; O2SAT 99
[2023-03-05 14:30] VITALS: BP 131/70; TEMP 98; O2SAT 97
[2023-03-05 15:00] VITALS: BP 130/73; TEMP 98.2; O2SAT 98
== END 2023-03-05 16:25 ==
LOC: M INFU 10:05
PROVIDERS: ATTEND Internal Medicine
DX: M35.00 Sjogren syndrome, unspecified (principal); Z88.5 Allergy status to narcotic agent; Z88.2 Allergy status to sulfonamides; Z88.8 Allergy status to other drugs, medicaments and biological substances
CPT/HCPCS: 96365; 96366; J9312

== ENCOUNTER → 2023-03-11 | Outpatient (CLI) | payer MEDICARE ==
[~2023-03-11] MED LIST changes: -ALBUTEROL SULFATE 2.5MG/0.5ML INH NEB SOLN INH PRN; -EPINEPHrine INJ 1 MG/ML 1ML AMP IM PRN; -diphenhydrAMINE 50MG/ML VIAL IV PRN; -methylPREDNISolone 125MG 2ML VIAL IV PRN
== END ==
LOC: M CLY 10:14
PROVIDERS: ATTEND Internal Medicine
DX: R93.6 Abnormal findings on diagnostic imaging of limbs (principal)

== ENCOUNTER → 2023-03-11 | Outpatient (REF) | payer MEDICARE, OTHER ==
[2023-03-11 18:39] LABS: BASO # 0.1 10^3/uL (0.0-0.2); BASO % 0.8 % (0.0-1.0); EOS # 0.3 10^3/uL (0.0-0.5); EOS % 5.2 % (0.0-3.0); HEMATOCRIT 41.3 % (36.0-47.0); LYMPH # 1.5 10^3/uL (1.5-5.0); LYMPH % 24.4 % (24.0-44.0); MEAN CORPUSCULAR HEMOGLOBIN 33.3 pg (27.0-33.0); MEAN CORPUSCULAR HGB CONC 33.9 g/dl (32.0-36.5); MEAN CORPUSCULAR VOLUME 98.1 fl (80.0-96.0); MONO # 0.5 10^3/uL (0.0-0.8); MONO % 7.6 % (2.0-8.0); NEUTROPHILS # 3.7 10^3/uL (1.5-8.5); NEUTROPHILS % 61.7 % (36.0-66.0); PLATELET COUNT, AUTOMATED 320 10^3/uL (150-450); RED BLOOD COUNT 4.21 10^6/uL (4.00-5.40); WHITE BLOOD COUNT 5.9 10^3/uL (4.0-10.0)
[2023-03-11 18:51] LABS: ALBUMIN 4.1 G/DL (3.2-5.2); ALKALINE PHOSPHATASE 65 U/L (46-116); ALT/SGPT 46 U/L (7.0-40); AST/SGOT 26 U/L (<34); BILIRUBIN,DIRECT 0.2 MG/DL (<0.4); BILIRUBIN,TOTAL 0.7 MG/DL (0.3-1.2); BLOOD UREA NITROGEN 15 MG/DL (9-23); CALCIUM LEVEL 8.7 MG/DL (8.3-10.6); CARBON DIOXIDE LEVEL 33 MMOL/L (20-31); CHLORIDE LEVEL 106 MMOL/L (98-107); GLOMERULAR FILTRATION RATE > 60.0 (>45); GLUCOSE, FASTING 47 MG/DL (74-106); POTASSIUM SERUM 4.4 MMOL/L (3.5-5.1); SODIUM LEVEL 143 MMOL/L (136-145); TOTAL PROTEIN 6.4 G/DL (5.7-8.2)
[2023-03-11 19:16] LABS: ERYTHROCYTE SEDIMENTATION RATE 4 mm/hr (0-30)
== END ==
LOC: M SFHCCLAY 10:09
PROVIDERS: ATTEND Internal Medicine
DX: M35.00 Sjogren syndrome, unspecified (principal)

== ENCOUNTER → 2023-03-24 | Outpatient (CLI) | payer MEDICARE | LOC: M WHC 11:05 | PROVIDERS: ATTEND Internal Medicine | DX: Z12.31 Encounter for screening mammogram for malignant neoplasm of breast (principal) ==

== ENCOUNTER → 2023-04-22 | Outpatient (REF) | payer MEDICARE ==
[2023-04-22 13:29] LABS: BASO # 0.1 10^3/uL (0.0-0.2); BASO % 1.6 % (0.0-1.0); EOS # 0.4 10^3/uL (0.0-0.5); EOS % 7.9 % (0.0-3.0); HEMATOCRIT 43.2 % (36.0-47.0); HEMOGLOBIN 13.7 g/dl (12.0-15.5); LYMPH # 2.3 10^3/uL (1.5-5.0); LYMPH % 41.9 % (24.0-44.0); MEAN CORPUSCULAR HEMOGLOBIN 30.6 pg (27.0-33.0); MEAN CORPUSCULAR HGB CONC 31.7 g/dl (32.0-36.5); MEAN CORPUSCULAR VOLUME 96.6 fl (80.0-96.0); MONO # 0.5 10^3/uL (0.0-0.8); MONO % 9.7 % (2.0-8.0); NEUTROPHILS # 2.1 10^3/uL (1.5-8.5); NEUTROPHILS % 38.4 % (36.0-66.0); PLATELET COUNT, AUTOMATED 464 10^3/uL (150-450); RED BLOOD COUNT 4.47 10^6/uL (4.00-5.40); WHITE BLOOD COUNT 5.5 10^3/uL (4.0-10.0)
[2023-04-22 13:55] LABS: C REACTIVE PROTEIN QUANTITATIV < 0.40 MG/DL (<1.0); TOTAL 25(OH) VITAMIN D 32.1 NG/ML (20.0-100.0)
[2023-04-22 13:56] LABS: ALBUMIN 3.6 G/DL (3.2-5.2); ALKALINE PHOSPHATASE 63 U/L (46-116); ALT/SGPT 28 U/L (7.0-40); AST/SGOT 17 U/L (<34); BILIRUBIN,DIRECT 0.2 MG/DL (<0.4); BILIRUBIN,TOTAL 0.5 MG/DL (0.3-1.2); BLOOD UREA NITROGEN 12 MG/DL (9-23); CALCIUM LEVEL 9.4 MG/DL (8.3-10.6); CARBON DIOXIDE LEVEL 32 MMOL/L (20-31); CHLORIDE LEVEL 107 MMOL/L (98-107); CREATININE FOR GFR 0.61 MG/DL (0.55-1.30); ERYTHROCYTE SEDIMENTATION RATE 26 mm/hr (0-30); GLOMERULAR FILTRATION RATE > 60.0 (>45); GLUCOSE, FASTING 91 MG/DL (74-106); POTASSIUM SERUM 5.2 MMOL/L (3.5-5.1); SODIUM LEVEL 146 MMOL/L (136-145); TOTAL PROTEIN 6.5 G/DL (5.7-8.2)
== END ==
LOC: M SFHCRHEU 11:10
PROVIDERS: ATTEND Internal Medicine
DX: M35.00 Sjogren syndrome, unspecified (principal); E55.9 Vitamin D deficiency, unspecified

== ENCOUNTER → 2023-06-10 | Outpatient (REF) | payer MEDICARE | LOC: M LAB REF 17:42 | PROVIDERS: ATTEND Internal Medicine | DX: M35.00 Sjogren syndrome, unspecified (principal) ==

== ENCOUNTER → 2023-07-14 | Outpatient (REF) | payer MEDICARE ==
[2023-07-14 17:34] LABS: BASO # 0.1 10^3/uL (0.0-0.2); BASO % 0.8 % (0.0-1.0); EOS # 0.6 10^3/uL (0.0-0.5); EOS % 6.9 % (0.0-3.0); HEMATOCRIT 41.7 % (36.0-47.0); HEMOGLOBIN 13.5 g/dl (12.0-15.5); LYMPH # 2.5 10^3/uL (1.5-5.0); LYMPH % 30.1 % (24.0-44.0); MEAN CORPUSCULAR HEMOGLOBIN 29.9 pg (27.0-33.0); MEAN CORPUSCULAR HGB CONC 32.4 g/dl (32.0-36.5); MEAN CORPUSCULAR VOLUME 92.5 fl (80.0-96.0); MONO # 0.8 10^3/uL (0.0-0.8); MONO % 9.2 % (2.0-8.0); NEUTROPHILS # 4.5 10^3/uL (1.5-8.5); NEUTROPHILS % 52.8 % (36.0-66.0); PLATELET COUNT, AUTOMATED 301 10^3/uL (150-450); RED BLOOD COUNT 4.51 10^6/uL (4.00-5.40); WHITE BLOOD COUNT 8.4 10^3/uL (4.0-10.0)
[2023-07-14 17:45] LABS: ERYTHROCYTE SEDIMENTATION RATE 14 mm/hr (0-30)
[2023-07-14 18:00] LABS: C REACTIVE PROTEIN QUANTITATIV < 0.40 MG/DL (<1.0)
[2023-07-14 18:02] LABS: ALBUMIN 3.7 G/DL (3.2-5.2); ALKALINE PHOSPHATASE 60 U/L (46-116); ALT/SGPT 22 U/L (7.0-40); AST/SGOT 18 U/L (<34); BILIRUBIN,DIRECT 0.1 MG/DL (<0.4); BILIRUBIN,TOTAL 0.4 MG/DL (0.3-1.2); BLOOD UREA NITROGEN 11 MG/DL (9-23); CALCIUM LEVEL 8.7 MG/DL (8.3-10.6); CARBON DIOXIDE LEVEL 32 MMOL/L (20-31); CHLORIDE LEVEL 105 MMOL/L (98-107); CREATININE FOR GFR 0.63 MG/DL (0.55-1.30); GLOMERULAR FILTRATION RATE > 60.0 (>45); GLUCOSE, FASTING 94 MG/DL (74-106); POTASSIUM SERUM 4.4 MMOL/L (3.5-5.1); SODIUM LEVEL 141 MMOL/L (136-145); TOTAL PROTEIN 6.2 G/DL (5.7-8.2)
== END ==
LOC: M SFHCCLAY 14:50
PROVIDERS: ATTEND Internal Medicine
DX: M35.00 Sjogren syndrome, unspecified (principal)

== ENCOUNTER 2023-09-04 09:01 | Outpatient (CLI) | payer MEDICARE ==
[~2023-09-04] VITALS: Ht 167.6 cm; Wt 111.8 kg
[~2023-09-04 09:01] MED LIST changes: +ALBUTEROL SULFATE 2.5MG/0.5ML INH NEB SOLN INH PRN; +EPINEPHrine INJ 1 MG/ML 1ML AMP IM PRN; +diphenhydrAMINE 50MG/ML VIAL IV PRN; +methylPREDNISolone 125MG 2ML VIAL IV PRN
[2023-09-04 09:15] VITALS: BP 126/71; TEMP 97; O2SAT 95
[2023-09-04] MEDS: ACETAMINOPHEN 650MG ER TAB (TYLENOL ARTHRITIS) PO ONE (09:18)
[2023-09-04] MEDS: diphenhydrAMINE 50MG PO PRIOR TO INFUSION PO ONE (09:18)
[2023-09-04] MEDS: riTUXimab 1,000 MG in NS 900 ML IV ONE (09:53)
[2023-09-04 10:30] VITALS: BP 138/75; O2SAT 98
[2023-09-04 11:00] VITALS: BP 142/74; O2SAT 98
[2023-09-04 11:30] VITALS: BP 135/67; O2SAT 96
[2023-09-04 13:20] VITALS: BP 121/66; O2SAT 98
== END 2023-09-04 13:20 | disposition home or self-care (01) ==
LOC: M INFU 09:01
PROVIDERS: ATTEND Internal Medicine
DX: M35.00 Sjogren syndrome, unspecified (principal); Z88.2 Allergy status to sulfonamides; Z88.5 Allergy status to narcotic agent; Z88.8 Allergy status to other drugs, medicaments and biological substances
CPT/HCPCS: 96413; 96415; J9312

== ENCOUNTER → 2023-09-05 | Outpatient (REF) | payer MEDICARE ==
[~2023-09-05] MED LIST changes: -ALBUTEROL SULFATE 2.5MG/0.5ML INH NEB SOLN INH PRN; -EPINEPHrine INJ 1 MG/ML 1ML AMP IM PRN; -diphenhydrAMINE 50MG/ML VIAL IV PRN; -methylPREDNISolone 125MG 2ML VIAL IV PRN
== END ==
LOC: M LAB REF 16:19
PROVIDERS: ATTEND Internal Medicine
DX: M35.00 Sjogren syndrome, unspecified (principal)

== ENCOUNTER → 2023-09-24 | Outpatient (REF) | payer MEDICARE, OTHER | LOC: M LAB REF 13:25 | PROVIDERS: ATTEND Internal Medicine | DX: M35.00 Sjogren syndrome, unspecified (principal) ==

== ENCOUNTER → 2023-10-02 | Outpatient (REF) | payer MEDICARE, OTHER ==
[2023-10-02 12:56] LABS: APPEARANCE, URINE HAZY (CLEAR); BACTERIA, URINE AUTO NEGATIVE (NEGATIVE); BILIRUBIN, URINE AUTO NEGATIVE (NEGATIVE); BLOOD, URINE BLOOD NEGATIVE (NEGATIVE); COLOR, URINE YELLOW (YELLOW); GLUCOSE, URINE (UA) AUTO NEGATIVE (NEGATIVE); KETONE, URINE AUTO NEGATIVE (NEGATIVE); LEUKOCYTE ESTERASE, URINE AUTO 2+ (NEGATIVE); MUCUS, URINE SMALL (NEGATIVE); NITRITE, URINE AUTO NEGATIVE (NEGATIVE); PROTEIN, URINE AUTO NEGATIVE (NEGATIVE); RBC, URINE AUTO 1 /HPF (0-3); SPECIFIC GRAVITY URINE AUTO 1.011 (1.002-1.035); SQUAMOUS EPITHELIAL CELL UR AU 0 /HPF (0-6); UROBILINOGEN, URINE AUTO 0.2 mg/dL (0.0-2.0); WBC, URINE AUTO 2 /HPF (0-3)
== END ==
LOC: M LAB REF 11:38
PROVIDERS: ATTEND Internal Medicine
DX: Z01.818 Encounter for other preprocedural examination (principal); Z79.899 Other long term (current) drug therapy

== ENCOUNTER → 2023-11-27 | Outpatient (REF) | payer MEDICARE ==
[2023-11-27 17:27] LABS: BASO # 0.1 10^3/uL (0.0-0.2); BASO % 1.6 % (0.0-1.0); EOS # 0.6 10^3/uL (0.0-0.5); EOS % 9.6 % (0.0-3.0); HEMATOCRIT 39.9 % (36.0-47.0); HEMOGLOBIN 12.8 g/dl (12.0-15.5); LYMPH # 2.3 10^3/uL (1.5-5.0); LYMPH % 39.8 % (24.0-44.0); MEAN CORPUSCULAR HEMOGLOBIN 28.2 pg (27.0-33.0); MEAN CORPUSCULAR HGB CONC 32.1 g/dl (32.0-36.5); MEAN CORPUSCULAR VOLUME 87.9 fl (80.0-96.0); MONO # 0.6 10^3/uL (0.0-0.8); MONO % 10.9 % (2.0-8.0); NEUTROPHILS # 2.2 10^3/uL (1.5-8.5); NEUTROPHILS % 37.9 % (36.0-66.0); PLATELET COUNT, AUTOMATED 285 10^3/uL (150-450); RED BLOOD COUNT 4.54 10^6/uL (4.00-5.40); WHITE BLOOD COUNT 5.7 10^3/uL (4.0-10.0)
[2023-11-27 17:33] LABS: ERYTHROCYTE SEDIMENTATION RATE 13 mm/hr (0-30)
[2023-11-27 17:44] LABS: C REACTIVE PROTEIN QUANTITATIV < 0.40 MG/DL (<1.0)
[2023-11-27 17:46] LABS: ALBUMIN 3.7 G/DL (3.2-5.2); ALKALINE PHOSPHATASE 91 U/L (46-116); ALT/SGPT 12 U/L (7.0-40); AST/SGOT < 8 U/L (<34); BILIRUBIN,DIRECT 0.1 MG/DL (<0.4); BILIRUBIN,TOTAL 0.4 MG/DL (0.3-1.2); BLOOD UREA NITROGEN 15 MG/DL (9-23); CALCIUM LEVEL 9.2 MG/DL (8.3-10.6); CARBON DIOXIDE LEVEL 30 MMOL/L (20-31); CHLORIDE LEVEL 104 MMOL/L (98-107); CREATININE FOR GFR 0.65 MG/DL (0.55-1.30); GLOMERULAR FILTRATION RATE > 60.0 (>45); GLUCOSE, FASTING 63 MG/DL (74-106); POTASSIUM SERUM 4.6 MMOL/L (3.5-5.1); SODIUM LEVEL 140 MMOL/L (136-145); TOTAL PROTEIN 6.2 G/DL (5.7-8.2)
== END ==
LOC: M SFHCCLAY 10:13
PROVIDERS: ATTEND Internal Medicine
DX: M35.00 Sjogren syndrome, unspecified (principal)

== ENCOUNTER → 2024-03-05 | Outpatient (CLI) | payer MEDICARE ==
[~2024-03-05] VITALS: Ht 165.1 cm; Wt 108.0 kg
[~2024-03-05] MED LIST changes: +ALBUTEROL SULFATE 2.5MG/0.5ML INH NEB SOLN INH PRN; +EPINEPHrine INJ 1 MG/ML 1ML AMP IM PRN; +diphenhydrAMINE 50MG/ML VIAL IV PRN; +methylPREDNISolone 125MG 2ML VIAL IV PRN
[2024-03-05] MEDS: diphenhydrAMINE 50MG PO PRIOR TO INFUSION PO ONE (09:30)
[2024-03-05] MEDS: ACETAMINOPHEN 650MG PO PRIOR TO INFUSION PO ONE (09:30)
[2024-03-05] MEDS: riTUXimab 1,000 MG in NS 900 ML IV ONE (10:26)
[2024-03-05 14:00] VITALS: BP 118/68; O2SAT 98
== END ==
LOC: M INFU 08:57
PROVIDERS: ATTEND Internal Medicine
DX: M35.00 Sjogren syndrome, unspecified (principal); Z88.2 Allergy status to sulfonamides; Z88.5 Allergy status to narcotic agent; Z88.8 Allergy status to other drugs, medicaments and biological substances
CPT/HCPCS: 96365; 96366; J9312

== ENCOUNTER → 2024-05-24 | Outpatient (REF) | payer MEDICARE ==
[~2024-05-24] MED LIST changes: -ALBUTEROL SULFATE 2.5MG/0.5ML INH NEB SOLN INH PRN; -EPINEPHrine INJ 1 MG/ML 1ML AMP IM PRN; +ISON1TAB5 PO; -ISON300T18 PO; -diphenhydrAMINE 50MG/ML VIAL IV PRN; -methylPREDNISolone 125MG 2ML VIAL IV PRN
== END ==
LOC: M LAB REF 16:06
PROVIDERS: ATTEND Internal Medicine
DX: M35.00 Sjogren syndrome, unspecified (principal)

== ENCOUNTER → 2024-06-14 | Outpatient (CLI) | payer MEDICARE | LOC: M WHC 12:19 | PROVIDERS: ATTEND Internal Medicine | DX: Z12.31 Encounter for screening mammogram for malignant neoplasm of breast (principal); R92.313 Mammographic fatty tissue density, bilateral breasts ==

== ENCOUNTER → 2024-07-07 | Outpatient (REF) | payer MEDICARE | LOC: M LAB REF 12:53 | PROVIDERS: ATTEND Internal Medicine | DX: M35.00 Sjogren syndrome, unspecified (principal) ==

== ENCOUNTER → 2024-07-29 | Outpatient (CLI) | payer MEDICARE | LOC: M RAD 12:54 | PROVIDERS: ATTEND Internal Medicine | DX: E04.1 Nontoxic single thyroid nodule (principal) ==

== ENCOUNTER → 2024-08-10 | Outpatient (REF) | payer MEDICARE ==
[2024-08-10 17:50] LABS: BASO # 0.1 10^3/uL (0.0-0.2); BASO % 1.5 % (0.0-1.0); EOS # 0.5 10^3/uL (0.0-0.5); EOS % 9.8 % (0.0-3.0); HEMATOCRIT 43.2 % (36.0-47.0); HEMOGLOBIN 13.8 g/dl (12.0-15.5); LYMPH # 1.6 10^3/uL (1.5-5.0); LYMPH % 29.1 % (24.0-44.0); MEAN CORPUSCULAR HEMOGLOBIN 29.6 pg (27.0-33.0); MEAN CORPUSCULAR HGB CONC 31.9 g/dl (32.0-36.5); MEAN CORPUSCULAR VOLUME 92.7 fl (80.0-96.0); MONO # 0.5 10^3/uL (0.0-0.8); MONO % 9.3 % (2.0-8.0); NEUTROPHILS # 2.8 10^3/uL (1.5-8.5); NEUTROPHILS % 50.1 % (36.0-66.0); PLATELET COUNT, AUTOMATED 304 10^3/uL (150-450); RED BLOOD COUNT 4.66 10^6/uL (4.00-5.40); WHITE BLOOD COUNT 5.5 10^3/uL (4.0-10.0)
[2024-08-10 17:55] LABS: ALBUMIN 3.8 G/DL (3.2-5.2); ALKALINE PHOSPHATASE 73 U/L (35-104); ALT/SGPT 23 U/L (7.0-40); AST/SGOT 20 U/L (<34); BILIRUBIN,DIRECT 0.1 MG/DL (<0.4); BILIRUBIN,TOTAL 0.4 MG/DL (0.3-1.2); BLOOD UREA NITROGEN 15 MG/DL (9-23); C REACTIVE PROTEIN QUANTITATIV < 0.50 MG/DL (<1.0); CALCIUM LEVEL 9.4 MG/DL (8.3-10.6); CARBON DIOXIDE LEVEL 32 MMOL/L (20-31); CHLORIDE LEVEL 102 MMOL/L (98-107); CREATININE FOR GFR 0.65 MG/DL (0.55-1.30); GLOMERULAR FILTRATION RATE > 60.0 (>45); GLUCOSE, FASTING 78 MG/DL (74-106); POTASSIUM SERUM 4.3 MMOL/L (3.5-5.1); SODIUM LEVEL 140 MMOL/L (136-145); TOTAL PROTEIN 6.6 G/DL (5.7-8.2)
[2024-08-10 17:57] LABS: ERYTHROCYTE SEDIMENTATION RATE 14 mm/hr (0-30)
== END ==
LOC: M SFHCCLAY 11:52
PROVIDERS: ATTEND Internal Medicine
DX: M35.00 Sjogren syndrome, unspecified (principal)

== ENCOUNTER 2024-09-03 08:13 | Outpatient (CLI) | payer MEDICARE ==
[~2024-09-03] VITALS: Ht 167.6 cm; Wt 106.4 kg
[~2024-09-03 08:13] MED LIST changes: +ALBUTEROL SULFATE 2.5MG/0.5ML INH CONCENTRATE NEB SOLN INH PRN; +EPINEPHrine INJ 1 MG/ML 1ML AMP IM PRN; +diphenhydrAMINE 50MG/ML VIAL IV PRN; +methylPREDNISolone 125MG 2ML VIAL IV PRN
[2024-09-03 08:40] VITALS: BP 134/89; O2SAT 100
[2024-09-03] MEDS: diphenhydrAMINE 25MG CAP PO ONE (08:42)
[2024-09-03] MEDS: ACETAMINOPHEN 650MG ER TAB (TYLENOL ARTHRITIS) PO ONE (08:42)
[2024-09-03] MEDS: riTUXimab 1,000 MG in NS (Normal Saline) 0.9% 900 ML IV ONE (09:23)
[2024-09-03 10:08] VITALS: BP 143/88; O2SAT 99
[2024-09-03 10:30] VITALS: BP 133/88; O2SAT 96
[2024-09-03 11:30] VITALS: BP 146/80; O2SAT 98
[2024-09-03 13:30] VITALS: BP 134/72; O2SAT 98
== END 2024-09-03 13:30 | disposition home or self-care (01) ==
LOC: M INFU 08:13
PROVIDERS: ATTEND Internal Medicine
DX: M35.00 Sjogren syndrome, unspecified (principal); Z88.2 Allergy status to sulfonamides; Z88.5 Allergy status to narcotic agent; Z88.8 Allergy status to other drugs, medicaments and biological substances
CPT/HCPCS: 96413; 96415; J9312

== ENCOUNTER → 2024-09-21 | Outpatient (CLI) | payer MEDICARE ==
[~2024-09-21] VITALS: Ht 167.6 cm; Wt 106.0 kg
[2024-09-21] MEDS: ACETAMINOPHEN 650MG ER TAB (TYLENOL ARTHRITIS) PO ONE (10:47)
[2024-09-21] MEDS: diphenhydrAMINE 50MG PO PRIOR TO INFUSION PO ONE (10:47)
[2024-09-21 10:58] VITALS: BP 137/70; TEMP 98; O2SAT 100
[2024-09-21] MEDS: riTUXimab 1,000 MG in NS (Normal Saline) 0.9% 900 ML IV ONE (11:21)
[2024-09-21 11:45] VITALS: BP 131/50; TEMP 98.3; O2SAT 100
[2024-09-21 12:15] VITALS: BP 134/79; O2SAT 100
[2024-09-21 12:45] VITALS: BP 160/81; O2SAT 100
[2024-09-21 13:45] VITALS: BP 155/78; O2SAT 99
[2024-09-21 14:42] VITALS: BP 128/78; O2SAT 100
== END ==
LOC: M INFU 10:31
PROVIDERS: ATTEND Internal Medicine
DX: M35.00 Sjogren syndrome, unspecified (principal); Z88.2 Allergy status to sulfonamides; Z88.5 Allergy status to narcotic agent; Z88.8 Allergy status to other drugs, medicaments and biological substances
CPT/HCPCS: 96365; 96366; J9312

== ENCOUNTER → 2024-10-04 | Outpatient (REF) | payer MEDICARE ==
[~2024-10-04] MED LIST changes: -ALBUTEROL SULFATE 2.5MG/0.5ML INH CONCENTRATE NEB SOLN INH PRN; -EPINEPHrine INJ 1 MG/ML 1ML AMP IM PRN; -diphenhydrAMINE 50MG/ML VIAL IV PRN; -methylPREDNISolone 125MG 2ML VIAL IV PRN
[2024-10-04 18:17] LABS: C REACTIVE PROTEIN QUANTITATIV < 0.50 MG/DL (<1.0)
[2024-10-04 18:18] LABS: ALKALINE PHOSPHATASE 87 U/L (35-104); ALT/SGPT 20 U/L (7.0-40); AST/SGOT 16 U/L (<34); BILIRUBIN,DIRECT 0.1 MG/DL (<0.4); BILIRUBIN,TOTAL 0.4 MG/DL (0.3-1.2); BLOOD UREA NITROGEN 15 MG/DL (9-23); CALCIUM LEVEL 9.5 MG/DL (8.3-10.6); CARBON DIOXIDE LEVEL 31 MMOL/L (20-31); CHLORIDE LEVEL 102 MMOL/L (98-107); CREATININE FOR GFR 0.61 MG/DL (0.55-1.30); GLOMERULAR FILTRATION RATE > 90.0 (>45); GLUCOSE, FASTING 78 MG/DL (74-106); POTASSIUM SERUM 4.3 MMOL/L (3.5-5.1); SODIUM LEVEL 141 MMOL/L (136-145); TOTAL PROTEIN 6.5 G/DL (5.7-8.2)
[2024-10-04 18:19] LABS: BASO # 0.1 10^3/uL (0.0-0.2); BASO % 1.1 % (0.0-1.0); EOS # 0.4 10^3/uL (0.0-0.5); EOS % 6.6 % (0.0-3.0); HEMATOCRIT 44.4 % (36.0-47.0); HEMOGLOBIN 14.4 g/dl (12.0-15.5); LYMPH % 31.3 % (24.0-44.0); MEAN CORPUSCULAR HEMOGLOBIN 29.1 pg (27.0-33.0); MEAN CORPUSCULAR HGB CONC 32.4 g/dl (32.0-36.5); MEAN CORPUSCULAR VOLUME 89.9 fl (80.0-96.0); MONO # 0.6 10^3/uL (0.0-0.8); MONO % 8.8 % (2.0-8.0); NEUTROPHILS # 3.4 10^3/uL (1.5-8.5); PLATELET COUNT, AUTOMATED 326 10^3/uL (150-450); RED BLOOD COUNT 4.94 10^6/uL (4.00-5.40); WHITE BLOOD COUNT 6.5 10^3/uL (4.0-10.0)
[2024-10-04 18:42] LABS: ERYTHROCYTE SEDIMENTATION RATE 17 mm/hr (0-30)
== END ==
LOC: M SFHCRHEU 11:43
PROVIDERS: ATTEND Internal Medicine
DX: M35.00 Sjogren syndrome, unspecified (principal); E55.9 Vitamin D deficiency, unspecified

== ENCOUNTER → 2025-01-13 | Outpatient (REF) | payer MEDICARE | LOC: M LAB REF 14:52 | PROVIDERS: ATTEND Internal Medicine | DX: M32.8 Other forms of systemic lupus erythematosus (principal) ==

== ENCOUNTER → 2025-02-17 | Outpatient (REF) | payer MEDICARE ==
[2025-02-17 17:57] LABS: BASO # 0.1 10^3/uL (0.0-0.2); BASO % 1.1 % (0.0-1.0); EOS # 0.3 10^3/uL (0.0-0.5); EOS % 5.4 % (0.0-3.0); LYMPH # 1.5 10^3/uL (1.5-5.0); LYMPH % 27.6 % (24.0-44.0); MONO # 0.6 10^3/uL (0.0-0.8); MONO % 11.1 % (2.0-8.0); NEUTROPHILS # 3.0 10^3/uL (1.5-8.5); NEUTROPHILS % 54.6 % (36.0-66.0); PLATELET COUNT, AUTOMATED 269 10^3/uL (150-450)
[2025-02-17 18:12] LABS: ERYTHROCYTE SEDIMENTATION RATE 6 mm/hr (0-30)
[2025-02-17 18:19] LABS: C REACTIVE PROTEIN QUANTITATIV < 0.50 MG/DL (<1.0)
[2025-02-17 18:20] LABS: ALT/SGPT 25 U/L (7.0-40); AST/SGOT 17 U/L (<34); CALCIUM LEVEL 8.6 MG/DL (8.3-10.6); CARBON DIOXIDE LEVEL 31 MMOL/L (20-31); CHLORIDE LEVEL 104 MMOL/L (98-107); CREATININE FOR GFR 0.69 MG/DL (0.55-1.30); GLOMERULAR FILTRATION RATE > 90.0 (>45); POTASSIUM SERUM 4.2 MMOL/L (3.5-5.1); SODIUM LEVEL 141 MMOL/L (136-145)
== END ==
LOC: M SFHCCLAY 09:35
PROVIDERS: ATTEND Internal Medicine
DX: M35.00 Sjogren syndrome, unspecified (principal)

== ENCOUNTER → 2025-03-29 | Outpatient (CLI) | payer MEDICARE ==
[2025-03-29 12:50] LABS: BASO # 0.1 10^3/uL (0.0-0.2); BASO % 1.2 % (0.0-1.0); EOS # 0.3 10^3/uL (0.0-0.5); EOS % 4.5 % (0.0-3.0); LYMPH # 1.4 10^3/uL (1.5-5.0); LYMPH % 24.0 % (24.0-44.0); MONO # 0.6 10^3/uL (0.0-0.8); MONO % 9.5 % (2.0-8.0); NEUTROPHILS # 3.7 10^3/uL (1.5-8.5); NEUTROPHILS % 60.6 % (36.0-66.0); PLATELET COUNT, AUTOMATED 281 10^3/uL (150-450)
[2025-03-29 13:32] LABS: C REACTIVE PROTEIN QUANTITATIV < 0.50 MG/DL (<1.0)
[2025-03-29 13:33] LABS: ALT/SGPT 31 U/L (7.0-40); AST/SGOT 23 U/L (<34); CALCIUM LEVEL 8.6 MG/DL (8.3-10.6); CARBON DIOXIDE LEVEL 30 MMOL/L (20-31); CHLORIDE LEVEL 104 MMOL/L (98-107); CREATININE FOR GFR 0.68 MG/DL (0.55-1.30); GLOMERULAR FILTRATION RATE > 90.0 (>45); POTASSIUM SERUM 4.4 MMOL/L (3.5-5.1); SODIUM LEVEL 140 MMOL/L (136-145)
== END ==
LOC: M LAB 12:18
PROVIDERS: ATTEND Internal Medicine
DX: M35.00 Sjogren syndrome, unspecified (principal)

== ENCOUNTER → 2025-04-19 | Outpatient (REF) | payer MEDICARE ==
[2025-04-19 18:17] LABS: BASO # 0.1 10^3/uL (0.0-0.2); BASO % 0.9 % (0.0-1.0); EOS # 0.2 10^3/uL (0.0-0.5); EOS % 2.8 % (0.0-3.0); LYMPH # 1.9 10^3/uL (1.5-5.0); LYMPH % 26.9 % (24.0-44.0); MONO # 0.7 10^3/uL (0.0-0.8); MONO % 9.6 % (2.0-8.0); NEUTROPHILS # 4.1 10^3/uL (1.5-8.5); NEUTROPHILS % 59.5 % (36.0-66.0); PLATELET COUNT, AUTOMATED 285 10^3/uL (150-450)
[2025-04-19 18:20] LABS: ALT/SGPT 27 U/L (7.0-40); AST/SGOT 22 U/L (<34); C REACTIVE PROTEIN QUANTITATIV < 0.50 MG/DL (<1.0); CALCIUM LEVEL 8.4 MG/DL (8.3-10.6); CARBON DIOXIDE LEVEL 30 MMOL/L (20-31); CHLORIDE LEVEL 105 MMOL/L (98-107); CREATININE FOR GFR 0.66 MG/DL (0.55-1.30); GLOMERULAR FILTRATION RATE > 90.0 (>45); POTASSIUM SERUM 4.3 MMOL/L (3.5-5.1); SODIUM LEVEL 144 MMOL/L (136-145)
== END ==
LOC: M SFHCCLAY 13:28
PROVIDERS: ATTEND Internal Medicine
DX: M35.00 Sjogren syndrome, unspecified (principal)